=== PATIENT | female | born 1950 | race Caucasian/White ===

== ENCOUNTER 2019-08-19 08:41 | Inpatient (IN) ==
[2019-08-19] MEDS ORDERED: Magnesium Hydroxide LIQ 30 ML UDC PO PRN (15:20)
[2019-08-19] MEDS: Heparin 5000 UNITS/ML VIAL(*) 1 ml vial SUBCUT SCH (21:53)
[2019-08-20] MEDS: Heparin 5000 UNITS/ML VIAL(*) 1 ml vial SUBCUT SCH ×3 (06:55→21:15)
[2019-08-20] MEDS: Aspirin EC 81 mg TAB.EC (enteric coated) PO SCH (08:55)
[2019-08-20] MEDS ORDERED: DOXAZOSIN 8 MG PO SCH (09:00)
[2019-08-20] MEDS: Polyethylene Glycol 3350 17 GM PACKET PO SCH (09:01)
[2019-08-21] MEDS: Heparin 5000 UNITS/ML VIAL(*) 1 ml vial SUBCUT SCH ×3 (06:58→21:49)
[2019-08-21] MEDS: Aspirin EC 81 mg TAB.EC (enteric coated) PO SCH (10:20)
[2019-08-21] MEDS: Polyethylene Glycol 3350 17 GM PACKET PO SCH (10:23)
[2019-08-21] MEDS: D5NS 0.9% 1000 ml BAG 1,000 ML IV SCH (17:27)
[2019-08-21] MEDS: Senna TAB 8.6 mg TAB PO PRN (20:00)
[2019-08-22 05:16] LABS: ABS Basophils 0.1 10^3/ul (0-0.2); ABS Eosinophils 0.4 10^3/ul (0-0.6); ABS Lymphocytes 2.4 10^3/ul (1.0-4.8); ABS Monocytes 0.8 10^3/ul (0-0.8); Eosinophil % 3.6 %; Hematocrit 32 % (35-47); Hemoglobin 10.9 g/dL (12.0-16.0); Lymphocyte % 23.7 %; Mean Corpuscular HGB Conc 34 g/dL (31-36); Mean Corpuscular Hemoglobin 31 pg (27-31); Mean Corpuscular Volume 91 fL (80-97); Mean Platelet Volume 8.1 fL (7.4-10.4); Platelet Count 374 10^3/uL (150-450); Red Blood Count 3.53 10^6 /uL (3.70-4.87); Red Cell Distribution Width 13 % (10-15); White Blood Count 10.2 10^3/uL (3.5-10.8)
[2019-08-22 05:32] LABS: Albumin/Globulin Ratio 1.3 (1-3); BUN/Creatinine Ratio 27.1 (8-20); Calcium 8.3 mg/dL (8.6-10.3); EGFR Non-African American 83.5 (>60); Globulin 2.3 g/dL (2-4); Total Bilirubin 0.4 mg/dL (0.2-1.0); Total Protein 5.3 g/dL (6.4-8.9)
[2019-08-22] MEDS: Heparin 5000 UNITS/ML VIAL(*) 1 ml vial SUBCUT SCH ×3 (05:37→21:47)
[2019-08-22] MEDS: D5NS 0.9% 1000 ml BAG 1,000 ML IV SCH (07:34)
[2019-08-22] MEDS: Aspirin EC 81 mg TAB.EC (enteric coated) PO SCH (10:25)
[2019-08-22] MEDS: Polyethylene Glycol 3350 17 GM PACKET PO SCH (10:29)
[2019-08-23] MEDS: Heparin 5000 UNITS/ML VIAL(*) 1 ml vial SUBCUT SCH ×3 (05:31→22:27)
[2019-08-23] MEDS: Aspirin EC 81 mg TAB.EC (enteric coated) PO SCH (08:20)
[2019-08-23] MEDS: Polyethylene Glycol 3350 17 GM PACKET PO SCH (08:22)
[2019-08-23] MEDS: D5NS 0.9% 1000 ml BAG 1,000 ML IV SCH (16:10)
[2019-08-23 18:33] LABS: Urine Appearance Turbid; Urine Bilirubin Negative (Negative); Urine Blood 1+ (Negative); Urine Color Yellow; Urine Glucose Negative (Negative); Urine Ketones Negative (Negative); Urine Nitrite Positive (Negative); Urine Protein 1+(30 mg/dL) (Negative); Urine Specific Gravity 1.011 (1.010-1.030); Urine Urobilinogen Negative (Negative)
[2019-08-23 18:37] LABS: Urine Bacteria 1+ (Absent); Urine Red Blood Cell 3+(>10/hpf) (Absent); Urine Squamous Epithelial Cell Present (Absent); Urine White Blood Cell 3+(>20/hpf) (Absent)
[2019-08-24] MEDS: D5NS 0.9% 1000 ml BAG 1,000 ML IV SCH (05:13)
[2019-08-24] MEDS: Heparin 5000 UNITS/ML VIAL(*) 1 ml vial SUBCUT SCH ×3 (05:31→22:15)
[2019-08-24] MEDS: Aspirin EC 81 mg TAB.EC (enteric coated) PO SCH (09:26)
[2019-08-24] MEDS: Polyethylene Glycol 3350 17 GM PACKET PO SCH (09:27)
[2019-08-24] MEDS: Trimethop/Sulfamethox 800/160 TAB PO SCH (20:04)
[2019-08-25] MEDS: Heparin 5000 UNITS/ML VIAL(*) 1 ml vial SUBCUT SCH ×3 (06:13→21:58)
[2019-08-25] MEDS: Trimethop/Sulfamethox 800/160 TAB PO SCH ×2 (08:22→20:23)
[2019-08-25] MEDS: Aspirin EC 81 mg TAB.EC (enteric coated) PO SCH (08:22)
[2019-08-25] MEDS: Polyethylene Glycol 3350 17 GM PACKET PO SCH (08:22)
[2019-08-26] MEDS: Heparin 5000 UNITS/ML VIAL(*) 1 ml vial SUBCUT SCH ×3 (05:15→21:40)
[2019-08-26] MEDS: Aspirin EC 81 mg TAB.EC (enteric coated) PO SCH (08:38)
[2019-08-26] MEDS: Trimethop/Sulfamethox 800/160 TAB PO SCH ×2 (08:39→21:40)
[2019-08-26] MEDS: Polyethylene Glycol 3350 17 GM PACKET PO SCH (08:39)
[2019-08-27] MEDS: Heparin 5000 UNITS/ML VIAL(*) 1 ml vial SUBCUT SCH ×3 (05:44→21:52)
[2019-08-27] MEDS: Aspirin EC 81 mg TAB.EC (enteric coated) PO SCH (09:36)
[2019-08-27] MEDS: Trimethop/Sulfamethox 800/160 TAB PO SCH ×2 (09:36→21:46)
[2019-08-27] MEDS: Polyethylene Glycol 3350 17 GM PACKET PO SCH (09:36)
[2019-08-28] MEDS: Heparin 5000 UNITS/ML VIAL(*) 1 ml vial SUBCUT SCH ×3 (05:31→20:48)
[2019-08-28 08:11] LABS: ABS Eosinophils 0.3 10^3/ul (0-0.6); ABS Lymphocytes 1.9 10^3/ul (1.0-4.8); ABS Monocytes 0.6 10^3/ul (0-0.8); Eosinophil % 3.5 %; Hematocrit 36 % (35-47); Hemoglobin 12.1 g/dL (12.0-16.0); Lymphocyte % 20.2 %; Mean Corpuscular HGB Conc 34 g/dL (31-36); Mean Corpuscular Hemoglobin 31 pg (27-31); Mean Corpuscular Volume 91 fL (80-97); Mean Platelet Volume 7.7 fL (7.4-10.4); Platelet Count 435 10^3/uL (150-450); Red Blood Count 3.92 10^6 /uL (3.70-4.87); Red Cell Distribution Width 14 % (10-15); White Blood Count 9.4 10^3/uL (3.5-10.8)
[2019-08-28 08:27] LABS: Albumin 3.6 g/dL (3.2-5.2); Albumin/Globulin Ratio 1.4 (1-3); Calcium 9.3 mg/dL (8.6-10.3); EGFR African American 66.9 (>60); EGFR Non-African American 55.3 (>60); Globulin 2.6 g/dL (2-4); Potassium 4.5 mmol/L (3.5-5.0); Total Bilirubin 0.4 mg/dL (0.2-1.0); Total Protein 6.2 g/dL (6.4-8.9)
[2019-08-28] MEDS: Aspirin EC 81 mg TAB.EC (enteric coated) PO SCH (09:01)
[2019-08-28] MEDS: Trimethop/Sulfamethox 800/160 TAB PO SCH ×2 (09:01→20:48)
[2019-08-28] MEDS: Polyethylene Glycol 3350 17 GM PACKET PO SCH (09:02)
[2019-08-29] MEDS: Heparin 5000 UNITS/ML VIAL(*) 1 ml vial SUBCUT SCH ×3 (05:19→21:39)
[2019-08-29] MEDS: Trimethop/Sulfamethox 800/160 TAB PO SCH (08:00)
[2019-08-29] MEDS: Aspirin EC 81 mg TAB.EC (enteric coated) PO SCH (08:00)
[2019-08-29] MEDS: Polyethylene Glycol 3350 17 GM PACKET PO SCH (08:04)
[2019-08-30] MEDS: Heparin 5000 UNITS/ML VIAL(*) 1 ml vial SUBCUT SCH ×3 (05:09→21:10)
[2019-08-30] MEDS: Aspirin EC 81 mg TAB.EC (enteric coated) PO SCH (07:27)
[2019-08-30] MEDS: Polyethylene Glycol 3350 17 GM PACKET PO SCH (07:31)
[2019-08-31] MEDS: Heparin 5000 UNITS/ML VIAL(*) 1 ml vial SUBCUT SCH ×3 (05:35→21:36)
[2019-08-31] MEDS: Polyethylene Glycol 3350 17 GM PACKET PO SCH (08:40)
[2019-08-31] MEDS: Aspirin EC 81 mg TAB.EC (enteric coated) PO SCH (08:44)
[2019-09-01] MEDS: Heparin 5000 UNITS/ML VIAL(*) 1 ml vial SUBCUT SCH ×3 (06:00→21:19)
[2019-09-01] MEDS: Polyethylene Glycol 3350 17 GM PACKET PO SCH (11:27)
[2019-09-01] MEDS: Aspirin EC 81 mg TAB.EC (enteric coated) PO SCH (11:28)
[2019-09-02] MEDS: Heparin 5000 UNITS/ML VIAL(*) 1 ml vial SUBCUT SCH ×3 (05:39→21:58)
[2019-09-02] MEDS: Polyethylene Glycol 3350 17 GM PACKET PO SCH (08:16)
[2019-09-02] MEDS: Aspirin EC 81 mg TAB.EC (enteric coated) PO SCH (08:22)
[2019-09-03] MEDS: Heparin 5000 UNITS/ML VIAL(*) 1 ml vial SUBCUT SCH ×3 (05:03→21:11)
[2019-09-03] MEDS: Aspirin EC 81 mg TAB.EC (enteric coated) PO SCH (08:45)
[2019-09-03] MEDS: Polyethylene Glycol 3350 17 GM PACKET PO SCH (08:47)
[2019-09-03] MEDS: Senna TAB 8.6 mg TAB PO PRN (21:11)
[2019-09-04 04:48] LABS: ABS Eosinophils 0.4 10^3/ul (0-0.6); ABS Lymphocytes 2.2 10^3/ul (1.0-4.8); ABS Monocytes 0.6 10^3/ul (0-0.8); Eosinophil % 5.3 %; Hematocrit 34 % (35-47); Hemoglobin 11.4 g/dL (12.0-16.0); Lymphocyte % 29.8 %; Mean Corpuscular HGB Conc 33 g/dL (31-36); Mean Corpuscular Hemoglobin 31 pg (27-31); Mean Corpuscular Volume 92 fL (80-97); Mean Platelet Volume 7.4 fL (7.4-10.4); Nucleated Red Blood Cells % 0.1; Platelet Count 356 10^3/uL (150-450); Red Cell Distribution Width 14 % (10-15); White Blood Count 7.3 10^3/uL (3.5-10.8)
[2019-09-04] MEDS: Heparin 5000 UNITS/ML VIAL(*) 1 ml vial SUBCUT SCH ×3 (04:56→20:49)
[2019-09-04 05:05] LABS: Albumin 3.5 g/dL (3.2-5.2); Albumin/Globulin Ratio 1.5 (1-3); BUN/Creatinine Ratio 24.7 (8-20); Calcium 9.1 mg/dL (8.6-10.3); EGFR African American 90.2 (>60); EGFR Non-African American 74.5 (>60); Globulin 2.4 g/dL (2-4); Potassium 4.5 mmol/L (3.5-5.0); Total Bilirubin 0.4 mg/dL (0.2-1.0); Total Protein 5.9 g/dL (6.4-8.9)
[2019-09-04] MEDS: Polyethylene Glycol 3350 17 GM PACKET PO SCH (09:50)
[2019-09-04] MEDS: Aspirin EC 81 mg TAB.EC (enteric coated) PO SCH (09:51)
[2019-09-05] MEDS: Heparin 5000 UNITS/ML VIAL(*) 1 ml vial SUBCUT SCH ×3 (05:39→21:17)
[2019-09-05] MEDS: Aspirin EC 81 mg TAB.EC (enteric coated) PO SCH (08:14)
[2019-09-05] MEDS: Polyethylene Glycol 3350 17 GM PACKET PO SCH (08:15)
[2019-09-06] MEDS: Heparin 5000 UNITS/ML VIAL(*) 1 ml vial SUBCUT SCH ×3 (05:21→21:49)
[2019-09-06] MEDS: Aspirin EC 81 mg TAB.EC (enteric coated) PO SCH (07:57)
[2019-09-06] MEDS: Polyethylene Glycol 3350 17 GM PACKET PO SCH (08:00)
[2019-09-07] MEDS: Heparin 5000 UNITS/ML VIAL(*) 1 ml vial SUBCUT SCH ×2 (05:50→15:42)
[2019-09-07] MEDS: Aspirin EC 81 mg TAB.EC (enteric coated) PO SCH (09:07)
[2019-09-07] MEDS: Polyethylene Glycol 3350 17 GM PACKET PO SCH (09:08)
[2019-09-07] MEDS: Senna TAB 8.6 mg TAB PO PRN (21:45)
[2019-09-08] MEDS: Heparin 5000 UNITS/ML VIAL(*) 1 ml vial SUBCUT SCH ×2 (09:26→21:12)
[2019-09-08] MEDS: Aspirin EC 81 mg TAB.EC (enteric coated) PO SCH (09:28)
[2019-09-08] MEDS: Polyethylene Glycol 3350 17 GM PACKET PO SCH (09:28)
[2019-09-09] MEDS: Heparin 5000 UNITS/ML VIAL(*) 1 ml vial SUBCUT SCH ×3 (10:38→20:29)
[2019-09-09] MEDS: Aspirin EC 81 mg TAB.EC (enteric coated) PO SCH (10:38)
[2019-09-09] MEDS: Polyethylene Glycol 3350 17 GM PACKET PO SCH (10:46)
[2019-09-10] MEDS: Polyethylene Glycol 3350 17 GM PACKET PO SCH (10:12)
[2019-09-10] MEDS: Aspirin EC 81 mg TAB.EC (enteric coated) PO SCH (10:21)
[2019-09-10] MEDS: Heparin 5000 UNITS/ML VIAL(*) 1 ml vial SUBCUT SCH ×2 (10:21→19:57)
[2019-09-11 04:47] LABS: ABS Basophils 0.1 10^3/ul (0-0.2); ABS Eosinophils 0.6 10^3/ul (0-0.6); ABS Lymphocytes 2.2 10^3/ul (1.0-4.8); ABS Monocytes 0.6 10^3/ul (0-0.8); Eosinophil % 8.9 %; Hematocrit 33 % (35-47); Hemoglobin 11.2 g/dL (12.0-16.0); Lymphocyte % 32.5 %; Mean Corpuscular HGB Conc 34 g/dL (31-36); Mean Corpuscular Hemoglobin 31 pg (27-31); Mean Corpuscular Volume 92 fL (80-97); Mean Platelet Volume 7.6 fL (7.4-10.4); Nucleated Red Blood Cells % 0.2; Platelet Count 282 10^3/uL (150-450); Red Blood Count 3.58 10^6 /uL (3.70-4.87); Red Cell Distribution Width 15 % (10-15); White Blood Count 6.7 10^3/uL (3.5-10.8)
[2019-09-11 05:03] LABS: Albumin 3.5 g/dL (3.2-5.2); Albumin/Globulin Ratio 1.5 (1-3); BUN/Creatinine Ratio 19.8 (8-20); Calcium 8.9 mg/dL (8.6-10.3); EGFR African American 85.1 (>60); EGFR Non-African American 70.3 (>60); Globulin 2.3 g/dL (2-4); Total Bilirubin 0.3 mg/dL (0.2-1.0); Total Protein 5.8 g/dL (6.4-8.9)
[2019-09-11] MEDS: Aspirin EC 81 mg TAB.EC (enteric coated) PO SCH (09:06)
[2019-09-11] MEDS: Heparin 5000 UNITS/ML VIAL(*) 1 ml vial SUBCUT SCH ×2 (09:08→21:01)
[2019-09-11] MEDS: Polyethylene Glycol 3350 17 GM PACKET PO SCH (09:08)
[2019-09-12] MEDS: Heparin 5000 UNITS/ML VIAL(*) 1 ml vial SUBCUT SCH ×2 (08:48→19:41)
[2019-09-12] MEDS: Aspirin EC 81 mg TAB.EC (enteric coated) PO SCH (08:49)
[2019-09-12] MEDS: Polyethylene Glycol 3350 17 GM PACKET PO SCH (08:52)
[2019-09-13] MEDS: Polyethylene Glycol 3350 17 GM PACKET PO SCH (08:15)
[2019-09-13] MEDS: Aspirin EC 81 mg TAB.EC (enteric coated) PO SCH (08:15)
[2019-09-13] MEDS: Heparin 5000 UNITS/ML VIAL(*) 1 ml vial SUBCUT SCH ×2 (08:15→19:52)
[2019-09-14] MEDS: Heparin 5000 UNITS/ML VIAL(*) 1 ml vial SUBCUT SCH ×2 (10:07→20:10)
[2019-09-14] MEDS: Aspirin EC 81 mg TAB.EC (enteric coated) PO SCH (10:08)
[2019-09-14] MEDS: Polyethylene Glycol 3350 17 GM PACKET PO SCH (10:09)
[2019-09-15] MEDS: Aspirin EC 81 mg TAB.EC (enteric coated) PO SCH (08:18)
[2019-09-15] MEDS: Heparin 5000 UNITS/ML VIAL(*) 1 ml vial SUBCUT SCH ×2 (08:18→19:58)
[2019-09-15] MEDS: Polyethylene Glycol 3350 17 GM PACKET PO SCH (08:26)
[2019-09-16 05:32] VITALS: BP 149/69
[2019-09-16] MEDS: Polyethylene Glycol 3350 17 GM PACKET PO SCH (09:21)
[2019-09-16] MEDS: Aspirin EC 81 mg TAB.EC (enteric coated) PO SCH (09:26)
[2019-09-16] MEDS: Heparin 5000 UNITS/ML VIAL(*) 1 ml vial SUBCUT SCH (09:27)
== END 2019-09-16 13:15 | disposition home health service (06) | DRG 65 ==
LOC: PMRU 13:12
PROVIDERS: ADMIT Physical Medicine & Rehabilitation; ATTEND Physical Medicine & Rehabilitation

== ENCOUNTER 2021-10-30 11:09 | Observation (INO) ==
[2021-10-30] MEDS ORDERED: Lactated Ringers 1000 ml BAG 1,000 ML IV ONE (11:27)
[2021-10-30] MEDS ORDERED: Ondansetron 4 mg VIAL 2 MG/ML 2 ml VIAL IV ONE (11:27)
[2021-10-30] MEDS ORDERED: Morphine 4 MG/ML VIAL (1 ml) IV ONE (11:27)
[2021-10-30 12:04] LABS: Hematocrit 22 % (35-47); Hemoglobin 6.3 g/dL (12.0-16.0); Mean Corpuscular HGB Conc 29 g/dL (31-36); Mean Corpuscular Hemoglobin 18 pg (27-31); Mean Corpuscular Volume 62 fL (80-97); Mean Platelet Volume 7.1 fL (7.4-10.4); Platelet Count 396 10^3/uL (150-450); Red Blood Count 3.55 10^6 /uL (3.70-4.87); Red Cell Distribution Width 19 % (10-15); White Blood Count 12.6 10^3/uL (3.5-10.8)
[2021-10-30 12:19] LABS: High Sens Troponin Baseline 8 pg/mL (<15)
[2021-10-30 12:29] LABS: Anisocytosis 2+; Hypochromasia 3+; Microcytosis 3+; Polychromasia 1+
[2021-10-30 12:30] LABS: ABS Eosinophils 0.1 10^3/ul (0-0.6); ABS Lymphocytes 0.4 10^3/ul (1.0-4.8); ABS Monocytes 0.7 10^3/ul (0-0.8); ABS Neutrophils 11.3 10^3/ul (1.5-7.7); Eosinophil % 0.9 %; Lymphocyte % 3.2 %
[2021-10-30 12:48] LABS: ALT 18 U/L (7-52); AST 26 U/L (13-39); Albumin 3.5 g/dL (3.2-5.2); Albumin/Globulin Ratio 1.5 (1-3); Alkaline Phosphatase 61 U/L (35-149); Anion Gap 6 mmol/L (2-11); Blood Urea Nitrogen 15 mg/dL (6-24); CO2 Carbon Dioxide 28 mmol/L (22-32); Chloride 109 mmol/L (101-111); Globulin 2.4 g/dL (2-4); Glucose 93 mg/dL (70-100); Lipase 18 U/L (11.0-82.0); Sodium 143 mmol/L (135-145); Total Protein 5.9 g/dL (6.4-8.9); eGFR CKD-EPI 94.7 (>60)
[2021-10-30 13:23] LABS: High Sensitivity Troponin 1 Hr 6 pg/mL (<15)
[2021-10-30] MEDS ORDERED: Iohexol 350 (CONTRAST) 500 ML MDV IV ONE (13:25)
[2021-10-30 14:36] LABS: Hematocrit 21 % (35-47); Hemoglobin 5.9 g/dL (12.0-16.0)
[2021-10-30] MEDS ORDERED: Ondansetron 4 mg VIAL 2 MG/ML 2 ml VIAL IV PRN (16:18)
[2021-10-30 16:56] LABS: Total Iron Binding Capacity 428 mcg/dL (250-450); Transferrin 306 mg/dL (203-362)
[2021-10-30 17:16] LABS: Ferritin 2.4 ng/mL (11-307)
[2021-10-30 17:19] LABS: % Iron Saturation 5 % (15-55); Iron < 20 ug/dL (50-212); Unsaturated Iron Binding 408 ug/dL
[2021-10-30] MEDS ORDERED: Pantoprazole VIAL 40 MG VIAL IV ONE (18:34)
[2021-10-30 21:14] LABS: Hematocrit 23 % (35-47); Hemoglobin 6.9 g/dL (12.0-16.0)
[2021-10-31 07:21] LABS: Immature Retic Fraction 0.42; RBC Retic Count 3.86 10^6/uL (3.70-4.87); Red Blood Count 3.86 10^6 /uL (3.70-4.87)
[2021-10-31 07:32] LABS: Albumin 3.3 g/dL (3.2-5.2); Albumin/Globulin Ratio 1.5 (1-3); Calcium 8.6 mg/dL (8.6-10.3); Globulin 2.2 g/dL (2-4); Potassium 4.2 mmol/L (3.5-5.0); Total Bilirubin 1.7 mg/dL (0.2-1.0); Total Protein 5.5 g/dL (6.4-8.9); eGFR CKD-EPI 79.2 (>60)
[2021-10-31 07:46] LABS: Hematocrit 26 % (35-47); Hematocrit for Retic CNT 26 % (35-47); Mean Corpuscular HGB Conc 31 g/dL (31-36); Mean Corpuscular Hemoglobin 21 pg (27-31); Mean Corpuscular Volume 68 fL (80-97); Mean Platelet Volume 7.7 fL (7.4-10.4); Platelet Count 335 10^3/uL (150-450); Red Cell Distribution Width 23 % (10-15)
[2021-10-31 07:47] LABS: TSH Ultra Thyroid Stim Horm 3.02 mcIU/mL (0.34-5.60)
[2021-10-31] MEDS ORDERED: Pantoprazole VIAL 40 MG VIAL IV SCH (09:00)
[2021-10-31 09:01] LABS: Direct Bilirubin 0.2 mg/dL (0.03-0.18); Indirect Bilirubin 1.5 mg/dL (0.3-1.0)
[2021-10-31] MEDS ORDERED: fentaNYL 100 mcg/2 ml 50 MCG/ML VIAL ONE (15:00)
[2021-10-31] MEDS ORDERED: Midazolam 10 mg/10 ml VIAL 1 mg/ml 10 ml VIAL (10 mg) ONE (15:00)
[2021-10-31] MEDS ORDERED: Labetalol IV 5 MG/ML 20 ml VIAL IV PUSH ONE (15:19)
[2021-10-31] MEDS: Lactated Ringers 1000 ml BAG 1,000 ML IV ONE ×2 (20:51→21:48)
[2021-11-01 06:28] LABS: ABS Basophils 0.1 10^3/ul (0-0.2); ABS Eosinophils 0.5 10^3/ul (0-0.6); ABS Lymphocytes 1.6 10^3/ul (1.0-4.8); ABS Monocytes 0.8 10^3/ul (0-0.8); ABS Neutrophils 5.4 10^3/ul (1.5-7.7); Eosinophil % 6.1 %; Hematocrit 30 % (35-47); Hemoglobin 9.2 g/dL (12.0-16.0); Lymphocyte % 18.9 %; Mean Corpuscular HGB Conc 31 g/dL (31-36); Mean Corpuscular Hemoglobin 21 pg (27-31); Mean Corpuscular Volume 68 fL (80-97); Mean Platelet Volume 7.5 fL (7.4-10.4); Platelet Count 350 10^3/uL (150-450); Red Blood Count 4.34 10^6 /uL (3.70-4.87); Red Cell Distribution Width 24 % (10-15); White Blood Count 8.4 10^3/uL (3.5-10.8)
[2021-11-01 06:59] LABS: Albumin 3.6 g/dL (3.2-5.2); Albumin/Globulin Ratio 1.4 (1-3); Globulin 2.5 g/dL (2-4); Potassium 3.6 mmol/L (3.5-5.0); Total Bilirubin 1.2 mg/dL (0.2-1.0); Total Protein 6.1 g/dL (6.4-8.9); eGFR CKD-EPI 93.6 (>60)
[2021-11-01 11:41] VITALS: BP 147/77
== END 2021-11-01 15:20 | disposition home or self-care (01) ==
LOC: EDHOLD 11:09 → ED 11:09 → SUATTDRO 16:18 → EDHOLD 10-31 00:43 → MED 10-31 21:16
PROVIDERS: ADMIT Internal Medicine; ATTEND Student in an Organized Health Care Education/Training Program

== ENCOUNTER 2023-06-30 15:17 | Observation (INO) ==
[2023-06-30] MEDS ORDERED: Famotidine IV 10 MG/ML 2 ml VIAL (20 mg) ONE (15:22)
[2023-06-30] MEDS ORDERED: EPINEPHrine Anaphylaxis SYR CERTADOSE SYR KIT ONE (15:22)
[2023-06-30] MEDS: EPINEPHrine Anaphylaxis SYR CERTADOSE SYR KIT IM ONE (15:28)
[2023-06-30] MEDS: methylPREDNISolone SOD SUCC 125 mg 2 ML VIAL IV ONE (15:28)
[2023-06-30] MEDS: Famotidine IV 10 MG/ML 2 ml VIAL (20 mg) IV SLOW PU ONE (15:29)
[2023-06-30] MEDS ORDERED: Succinylcholine 200 mg VIAL 20 mg/ml 10 ml VIAL (200 mg) ONE (15:44)
[2023-06-30] MEDS ORDERED: Rocuronium 50 mg VIAL 10 mg/ml 5 ml VIAL (50 mg) ONE (15:44)
[2023-06-30] MEDS ORDERED: EPINEPHrine,Rac 2.25% NEB.SOL 0.5 ML ONE (15:47)
[2023-06-30 15:50] LABS: ABS Eosinophils 0.3 10^3/uL (0.0-0.5); ABS Lymphocytes 2.2 10^3/uL (1.0-4.8); ABS Monocytes 0.7 10^3/uL (0.0-0.9); ABS Neutrophils 6.4 10^3/uL (1.5-7.6); ABS Nucleated RBC 0.01 10^3/ul; Eosinophil % 2.7 %; Hemoglobin 14.6 g/dL (11.5-14.3); Lymphocyte % 23.1 %; Mean Corpuscular Hemoglobin 30.8 pg (27-33); Mean Corpuscular Hgb Conc 33.9 g/dL (31-36); Mean Corpuscular Volume 90.8 fL (80-97); Mean Platelet Volume 8.4 fL (7.5-11.2); Nucleated Red Blood Cells % 0.1 %/100WBC (0.0-0.8); Platelet Count 358 10^3/uL (150-450); Red Blood Count 4.74 10^6/uL (3.63-4.92); Red Cell Distribution Width 13.3 % (12-17); White Blood Count 9.5 10^3/uL (3.8-11.8)
[2023-06-30] MEDS: EPINEPHrine,Rac 2.25% NEB.SOL 0.5 ML INH ONE ×2 (15:54→15:55)
[2023-06-30] MEDS ORDERED: Oxymetazoline 0.05% NASAL SPR 15 ML BTL ONE (16:05)
[2023-06-30] MEDS: Oxymetazoline 0.05% NASAL SPR 15 ML BTL BOTH NARES ONE (16:06)
[2023-06-30 16:27] LABS: Albumin 4.2 g/dL (3.2-5.2); Albumin/Globulin Ratio 1.4 (1-3); Calcium 9.8 mg/dL (8.6-10.3); Creatinine, Serum 0.92 mg/dL (0.51-0.95); Potassium 4.1 mmol/L (3.5-5.0); Total Bilirubin 0.6 mg/dL (0.2-1.0); Total Protein 7.2 g/dL (6.4-8.9); eGFR CKD-EPI 66.6 (>60)
[2023-06-30] MEDS: Enoxaparin 40 MG/0.4 ML SYR SUBCUT SCH (18:48)
[2023-06-30] MEDS ORDERED: hydrALAZINE 20 mg/ml 1 ML Vial IV IV SLOW PU PRN (20:22)
[2023-07-01] MEDS: methylPREDNISolone SOD SUCC 40 mg/ml 1 ml VIAL IV SCH ×2 (02:00→09:47)
[2023-07-01] MEDS: Famotidine IV 10 MG/ML 2 ml VIAL (20 mg) IV SLOW PU SCH (03:57)
[2023-07-01 06:56] LABS: ABS Lymphocytes 0.3 10^3/uL (1.0-4.8); ABS Monocytes 0.1 10^3/uL (0.0-0.9); ABS Neutrophils 8.5 10^3/uL (1.5-7.6); Hematocrit 38.8 % (35-45); Lymphocyte % 3.8 %; Mean Corpuscular Hemoglobin 30.3 pg (27-33); Mean Corpuscular Hgb Conc 33.4 g/dL (31-36); Mean Corpuscular Volume 90.9 fL (80-97); Mean Platelet Volume 8.5 fL (7.5-11.2); Platelet Count 293 10^3/uL (150-450); Red Blood Count 4.27 10^6/uL (3.63-4.92); Red Cell Distribution Width 13.5 % (12-17)
[2023-07-01 07:32] LABS: Calcium 9.5 mg/dL (8.6-10.3); Creatinine, Serum 0.88 mg/dL (0.51-0.95); Magnesium 2.1 mg/dL (1.9-2.7); Potassium 3.8 mmol/L (3.5-5.0); eGFR CKD-EPI 70.2 (>60)
[2023-07-01 09:29] VITALS: BP 135/68
== END 2023-07-01 10:45 | disposition home or self-care (01) ==
LOC: ED 15:17 → EDHOLD 15:17 → ICU 17:50
PROVIDERS: ADMIT Internal Medicine Pulmonary Disease; ATTEND Internal Medicine Pulmonary Disease